=== PATIENT | female | born 1940 | race Caucasian/White ===

== ENCOUNTER 2020-04-23 14:28 | Emergency (ER) | payer MEDICARE, BC ==
[2020-04-23 14:36] VITALS: BP 163/90; PULSE 108
[2020-04-23] MEDS ORDERED: Sodium Chloride 0.9% 1,000 ML IV ONE (14:52)
[2020-04-23] MEDS ORDERED: Ondansetron 4 MG/2 ML SDV IVPUSH ONE (14:52)
--- NOTE | 2020-04-23 14:59 | EDM.PDOC ---
<Gail Blackman - Last Filed: 04/23/20 15:05> ED HPI GENERAL MEDICAL PROBLEM - General Chief Complaint: Abdominal Pain Stated Complaint: STOMACH PAINS Time Seen by Provider: 04/23/20 14:45 Source of Information: Reports: Patient, RN, RN Notes Reviewed History Limitations: Reports: No Limitations - History of Present Illness INITIAL COMMENTS - FREE TEXT/NARRATIVE: 80 year old female with known history of abdominal hernias. pt states she has had these "hernias outside of her stomach for over 15 years." reports hx of gastric bypass "20 some years ago." states on she was making donuts and ate a couple of them and felt "plugged up" soon after. states she has had nausea/dry heaves since , has not been able to have a BM or pass flatulence since . states she has not eaten anything solid since , has tried drinking some coke hoping that would "push things through". states she has had a sip of water earlier today. denies fever/chills. reports SOB with abdominal distention. rates pain 11/10. reports PMH of diabetes for which she takes metformin. Onset Date: 04/21/20 Location: Reports: Abdomen Severity: Moderate Bilateral Lower Abdominal Pain Score (Numeric/FACES): 7 - Related Data Allergies Allergy/AdvReac Type Severity Reaction Status Date / Time adhesive Allergy Blisters Verified 11/28/15 06:48 .ENVIRONMENTAL Allergy Cough Uncoded 11/28/15 06:48 Home Meds: Home Meds Cholecalciferol (Vitamin D3) [Vitamin D3] 1,000 unit PO DAILY 11/24/15 [History] Cyanocobalamin (Vitamin B-12) [Vitamin B-12] 500 mcg PO DAILY 11/24/15 [History] Naproxen [IJD: Naproxen] 500 mg PO BID PRN 11/24/15 [History] Lutein/Minerals/Vit A,C & E [Ocuvite] 1 tab PO DAILY 11/28/15 [History] Past Medical History HEENT History: Reports: Cataract Cardiovascular History: Reports: High Cholesterol, Hypertension Respiratory History: Reports: Sleep Apnea Gastrointestinal History: Reports: Chronic Diarrhea, Colon Polyp, Hepatitis Genitourinary History: Reports: None 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: Musculoskeletal History: Reports: Osteoarthritis, Other (See Below) Other Musculoskeletal History: DJD Neurological History: Reports: Migraines Psychiatric History: Reports: None Endocrine/Metabolic History: Reports: Obesity/BMI 30+, Osteopenia, Other (See Below) Other Endocrine/Metabolic History: pre diabetes Hematologic History: Reports: Anemia, B12 Deficiency Immunologic History: Reports: None Oncologic (Cancer) History: Reports: Basal Cell Carcinoma Dermatologic History: Reports: None - Infectious Disease History Infectious Disease History: Other Infectious Disease History: Uncertain of health hx - Past Surgical History HEENT Surgical History: Reports: None Cardiovascular Surgical History: Reports: None GI Surgical History: Reports: Bariatric Procedure, Cholecystectomy, Colonoscopy, Hernia Repair/Other, Polypectomy Female Surgical History: Reports: Tubal Ligation Musculoskeletal Surgical History: Reports: Other (See Below) Other Musculoskeletal Surgeries/Procedures:: HAMMERTOE CORRECTION Social & Family History - Tobacco Use Tobacco Use Status *Q: Never Tobacco User Second Hand Smoke Exposure: No - Recreational Drug Use Recreational Drug Use: No ED ROS GENERAL - Review of Systems Review Of Systems: Comprehensive ROS is negative, except as noted in HPI. ED EXAM, GI/ABD - Physical Exam Exam: See Below Exam Limited By: No Limitations General Appearance: Alert, WD/WN, No Apparent Distress Eyes: Bilateral: EOMI Ears: Normal External Exam, Hearing Grossly Normal Nose: Normal Inspection Throat/Mouth: Normal Inspection, No Airway Compromise Head: Atraumatic, Normocephalic Neck: Normal Inspection, Supple, Non-Tender, Full Range of Motion Respiratory/Chest: No Respiratory Distress, Lungs Clear, Normal Breath Sounds Cardiovascular: Normal Peripheral Pulses, Regular Rate, Rhythm, No Edema GI/Abdominal Exam: Distended, Tender, Abnormal Bowel Sounds (BS absent x 4 quadrants), Hernia (large palpable hernia across waistline/umbilicus, right and left quadrants, firm, tender), Other (varicosities noted across hernia area). No: Normal Bowel Sounds, Soft, Non-Tender, No Distention, No Mass (Female) Exam: Deferred Rectal (Female) Exam: Deferred. No: Heme - Stool Back Exam: Normal Inspection, Full Range of Motion Extremities: Normal Inspection, Normal Range of Motion Neurological: Alert, Oriented, CN II-XII Intact, Normal Cognition, Normal Gait, Normal Reflexes, No Motor/Sensory Deficits Psychiatric: Normal Affect, Normal Mood Skin Exam: Warm, Dry, Intact Lymphatic: No Adenopathy Departure - Departure Disposition: DC/Tfer to [facility] 02 Clinical Impression: Gastroduodenitis, Ileus, History of gastric bypass Abdominal pain Qualifiers: Abdominal location: generalized Qualified Code(s): R10.84 - Generalized abdominal pain Ventral hernia Qualifiers: Obstruction and gangrene presence: with obstruction but without gangrene Qualified Code(s): K43.6 - Other and unspecified ventral hernia with obs truction, without gangrene UTI (urinary tract infection) Qualifiers: Urinary tract infection type: acute cystitis Hematuria presence: without hematuria Qualified Code(s): N30.00 - Acute cystitis without hematuria Diabetes Qualifiers: Diabetes mellitus type: type 2 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 use: without half-way use Diabetes mellitus complication status: without complication Qualified Code(s): E11.9 - Type 2 diabetes mellitus without complications - Discharge Information Forms: ED Department Discharge, Interfacility Transfer [facility] Sepsis Event Note (ED) - Evaluation Sepsis Screening Result: No Definite Risk <Mary Ann Espinoza - Last Filed: 04/23/20 18:06> Course - Vital Signs Last Recorded V/S: Last Vital Signs Temp 97.6 F 04/23/20 14:31 Pulse 108 H 04/23/20 14:31 Resp 18 04/23/20 14:31 BP 163/90 H 04/23/20 14:31 Pulse Ox 97 04/23/20 14:31 - Orders/Labs/Meds Orders: Active Orders 24 hr Category Date Time Status CULTURE BLOOD [BC] Stat Lab 04/23/20 14:42 Received CULTURE BLOOD [BC] Stat Lab 04/23/20 15:13 Received CULTURE URINE [RM] Routine Lab 04/23/20 16:55 Received Sodium Chloride 0.9% [Normal Saline] 1,000 ml Med 04/23/20 16:45 Active IV ASDIRECTED Blood Culture x2 Reflex Set [OM.PC] Stat Oth 04/23/20 14:51 Ordered Medication Orders Sodium Chloride (Normal Saline) 1,000 mls @ 150 mls/hr IV ASDIRECTED DANIEL Last Admin: 04/23/20 17:00 Dose: 150 mls/hr Documented by: LIZZIE Labs: Laboratory Tests 04/23/20 04/23/20 04/23/20 Range/Units 14:42 14:42 14:42 WBC 14.1 H (5.0-10.0) 10^3/uL RBC 5.28 (4.2-5.4) 10^6/uL Hgb 15.9 (12.0-16.0) g/dL Hct 45.9 (37.0-47.0) % MCV 86.9 (80-100) fL MCH 30.1 (27.0-34.0) pg MCHC 34.6 (33.0-35.0) g/dL Plt Count 243 (150-450) 10^3/uL Neut % (Auto) 83.9 H (42.2-75.2) % Lymph % (Auto) 8.9 L (20.5-50.1) % Towner % (Auto) 6.7 (2-8) % Eos % (Auto) 0.2 L (1.0-3.0) % Baso % (Auto) 0.3 (0.0-1.0) % Sodium 135 L (136-145) mmol/L Potassium 3.8 (3.5-5.1) mmol/L Chloride 96 L (98-107) mmol/L Carbon Dioxide 22 (21-32) mmol/L Anion Gap 20.8 H (7-13) mEq/L BUN 22 H (7-18) mg/dL Creatinine 1.05 H (0.55-1.02) mg/dL Est Cr Clr Drug Dosing 38.13 mL/min Estimated GFR (MDRD) 51 BUN/Creatinine Ratio 21.0 (No establ ref range) Glucose 177 H (74-99) mg/dL Lactic Acid 3.1 H* (0.4-2.0) mmol/L Calcium 9.1 (8.5-10.1) mg/dL Total Bilirubin 1.8 H (0.2-1.0) mg/dL AST 38 H (15-37) U/L ALT 62 H (14-59) U/L Alkaline Phosphatase 58 (46-116) U/L Total Protein 7.1 (6.4-8.2) g/dL Albumin 3.9 (3.4-5.0) g/dL Globulin 3.2 Albumin/Globulin Ratio 1.2 Urine Color (YELLOW) Urine Appearance (CLEAR) Urine pH (5.0-9.0) Ur Specific [place] (1.005-1.030) Urine Protein (NEGATIVE) Urine Glucose (UA) (NEGATIVE) Urine Ketones (NEGATIVE) Urine Occult Blood (NEGATIVE) Urine Nitrite (NEGATIVE) Urine Bilirubin (NEGATIVE) Urine Urobilinogen (0.2-1.0) mg/dL Ur Leukocyte Esterase (NEGATIVE) Urine RBC /HPF Urine WBC (0-5/HPF) /HPF Ur Epithelial Cells (NOT SEEN) /HPF Amorphous Sediment (NOT SEEN) /HPF Urine Bacteria (0-FEW/HPF) /HPF Urine Mucus (NOT SEEN) /LPF SARS CoV-2 RNA Rapid JIMI (NEGATIVE) 04/23/20 04/23/20 Range/Units 16:55 17:18 WBC (5.0-10.0) 10^3/uL RBC (4.2-5.4) 10^6/uL Hgb (12.0-16.0) g/dL Hct (37.0-47.0) % MCV (80-100) fL MCH (27.0-34.0) pg MCHC (33.0-35.0) g/dL Plt Count (150-450) 10^3/uL Neut % (Auto) (42.2-75.2) % Lymph % (Auto) (20.5-50.1) % Towner % (Auto) (2-8) % Eos % (Auto) (1.0-3.0) % Baso % (Auto) (0.0-1.0) % Sodium (136-145) mmol/L Potassium (3.5-5.1) mmol/L Chloride (98-107) mmol/L Carbon Dioxide (21-32) mmol/L Anion Gap (7-13) mEq/L BUN (7-18) mg/dL Creatinine (0.55-1.02) mg/dL Est Cr Clr Drug Dosing mL/min Estimated GFR (MDRD) BUN/Creatinine Ratio (No establ ref range) Glucose (74-99) mg/dL Lactic Acid (0.4-2.0) mmol/L Calcium (8.5-10.1) mg/dL Total Bilirubin (0.2-1.0) mg/dL AST (15-37) U/L ALT (14-59) U/L Alkaline Phosphatase (46-116) U/L Total Protein (6.4-8.2) g/dL Albumin (3.4-5.0) g/dL Globulin Albumin/Globulin Ratio Urine Color Yellow (YELLOW) Urine Appearance Cloudy (CLEAR) Urine pH 5.5 (5.0-9.0) Ur Specific [place] 1.020 (1.005-1.030) Urine Protein Negative (NEGATIVE) Urine Glucose (UA) Negative (NEGATIVE) Urine Ketones Negative (NEGATIVE) Urine Occult Blood Negative (NEGATIVE) Urine Nitrite Positive H (NEGATIVE) Urine Bilirubin Negative (NEGATIVE) Urine Urobilinogen 2.0 H (0.2-1.0) mg/dL Ur Leukocyte Esterase Negative (NEGATIVE) Urine RBC 0-5 /HPF Urine WBC 5-10 H (0-5/HPF) /HPF Ur Epithelial Cells Rare (NOT SEEN) /HPF Amorphous Sediment Rare (NOT SEEN) /HPF Urine Bacteria Many H (0-FEW/HPF) /HPF Urine Mucus Not seen (NOT SEEN) /LPF SARS CoV-2 RNA Rapid JIMI Negative (NEGATIVE) Meds: Medications Generic Name Dose Route Start Last Admin Trade Name Rosanne PRN Reason Stop Dose Admin Sodium Chloride 1,000 mls @ 150 mls/hr 04/23/20 16:45 04/23/20 17:00 Normal Saline IV 150 mls/hr ASDIRECTED DANIEL Administration Discontinued Medications Generic Name Dose Route Start Last Admin Trade Name Rosanne PRN Reason Stop Dose Admin Fentanyl 50 mcg 04/23/20 16:36 04/23/20 17:00 Sublimaze IVPUSH 04/23/20 16:37 50 mcg ONETIME ONE Administration Sodium Chloride 1,000 mls @ 999 mls/hr 04/23/20 14:52 04/23/20 14:59 Normal Saline IV 04/23/20 15:52 999 mls/hr .BOLUS ONE Administration Piperacillin Sod/Tazobactam 50 mls @ 100 mls/hr 04/23/20 16:40 04/23/20 17:17 Sod 2.25 gm/ Sodium Chloride IV 04/23/20 17:09 100 mls/hr ONETIME ONE Administration Sodium Chloride Confirm 04/23/20 17:06 04/23/20 17:15 Normal Saline Administered 04/23/20 17:07 Not Given Dose 50 mls @ as directed .ROUTE .STK-MED ONE Sodium Chloride Confirm 04/23/20 17:09 04/23/20 17:18 Normal Saline Administered 04/23/20 17:10 Not Given Dose 50 mls @ as directed .ROUTE .STK-MED ONE Iopamidol 100 ml 04/23/20 15:20 04/23/20 15:32 Isovue-300 (61%) IVPUSH 04/23/20 15:21 100 ml ONETIME ONE Administration Ondansetron HCl 4 mg 04/23/20 14:52 04/23/20 14:59 Zofran IVPUSH 04/23/20 14:53 4 mg ONETIME ONE Administration - Radiology Interpretation Free Text/Narrative:: CT Abdomen/Pelvis with contrast: PROCEDURE INFORMATION: Exam: CT Abdomen And Pelvis With Contrast Exam date and time: 04/23/2020 4:04 PM Age: 80 years old Clinical indication: Other: Wbc 14,100; Prior surgery; Additional info: Abdominal pain/hernia TECHNIQUE: Imaging protocol: Computed tomography of the abdomen and pelvis with intravenous contrast. Radiation optimization: All CT scans at this facility use at least one of these dose optimization techniques: automated exposure control; mA and/or kV adjustment per patient size (includes targeted exams where dose is matched to clinical indication); or iterative reconstruction. Contrast material: [id number]; Contrast volume: 100 ml; Contrast route: INTRAVENOUS (IV); COMPARISON: No relevant prior studies available. FINDINGS: Lungs: Atelectatic changes noted within the lung bases. Liver: There is a diffuse decrease in hepatic parenchymal density, consistent with mild fatty infiltration. Mild hepatomegaly. Gallbladder and bile ducts: Gallbladder is not well seen. Pancreas: Normal. No ductal dilation. Spleen: Normal. No splenomegaly. Adrenal glands: Normal. No mass. Kidneys and ureters: Normal. No hydronephrosis. Stomach and bowel: Thickening of the francis of the stomach and duodenum present consistent with gastroduodenitis. Moderate distention of the small bowel is present with air- fluid levels consistent with moderate ileus. Appendix: No evidence of appendicitis. Intraperitoneal space: Normal. No significant fluid collection. Vasculature: Unremarkable. No abdominal aortic aneurysm. Lymph nodes: Unremarkable. No enlarged lymph nodes. Urinary bladder: Unremarkable as visualized. Reproductive: Right adnexal cystic lesion is present measuring up to 3.8 cm. Bones/joints: Bilateral total hip replacements are present. The lumbar spine demonstrates moderate degenerative changes at multiple levels. Soft tissues: Large ventral wall hernia with bowel and fat present. Other findings: Postoperative changes noted within the epigastric region. IMPRESSION: 1. Moderate distention of the small bowel is present with air-fluid levels consistent with moderate ileus. 2. Large ventral wall hernia with bowel and fat present. 3. Mild hepatomegaly. 4. Thickening of the francis of the stomach and duodenum present consistent with gastroduodenitis. 5. Right adnexal cystic lesion is present measuring up to 3.8 cm. Thank you for allowing us to participate in the care of your patient. Dictated and Authenticated by: Dixon Bennett DO 04/23/2020 4:32 PM Central Time ([place] & [place]) See rad report - Re-Assessments/Exams Free Text/Narrative Re-Assessment/Exam: 04/23/20 17:03 I personally performed or re-performed the physical examination and medical decision making. I have verified all student documentation or findings, including history, physical exam and/or medical decision making. 04/23/20 17:58 1637 - Discussed patient case with Dr. Conner who states he would like the patient transferred to [facility] in [place]. 1640 - Discussed patient case with Dr. Ellsworth who states he is willing to admit the patient as long as Surgery is on board. 1650 - Discussed patient case with Dr. Baeza who states it is necessary that the patient be transferred to [facility] for bariatric surgeon. 1711 - Pt case discussed with Dr. Sherman, Bariatric surgeon at who states he would also like general surgery to be on board. 1749 - Dr. Diallo, surgery resident, who was with Dr. Mcclure, surgeon, agree to accept the patient for transfer to [facility]. Both Dr. Diallo and Dr. Sherman were concerned about the amount of time it would take for the patient to get to [place] by ground, would prefer she be transferred by air if possible. Departure - Departure Time of Disposition: 18:03 Condition: Fair, Serious - Discharge Information *PRESCRIPTION DRUG MONITORING PROGRAM REVIEWED*: No *COPY OF PRESCRIPTION DRUG MONITORING REPORT IN PATIENT SARAH: No Sepsis Event Note (ED) - Focused Exam Vital Signs: Vital Signs Temp Pulse Resp BP Pulse Ox 04/23/20 14:31 97.6 F 108 H 18 163/90 H 97
[2020-04-23 15:13] LABS: ANION GAP 20.8 mEq/L (7-13)
[2020-04-23] MEDS ORDERED: Iopamidol 612 MG/ML 100 ML Bottle IVPUSH ONE (15:20)
--- NOTE | 2020-04-23 16:32 | CT ---
PROCEDURE INFORMATION: Exam: CT Abdomen And Pelvis With Contrast Exam date and time: 04/23/2020 4:04 PM Age: 80 years old Clinical indication: Other: Wbc 14,100; Prior surgery; Additional info: Abdominal pain/hernia TECHNIQUE: Imaging protocol: Computed tomography of the abdomen and pelvis with intravenous contrast. Radiation optimization: All CT scans at this facility use at least one of these dose optimization techniques: automated exposure control; mA and/or kV adjustment per patient size (includes targeted exams where dose is matched to clinical indication); or iterative reconstruction. Contrast material: [id number]; Contrast volume: 100 ml; Contrast route: INTRAVENOUS (IV); COMPARISON: No relevant prior studies available. FINDINGS: Lungs: Atelectatic changes noted within the lung bases. Liver: There is a diffuse decrease in hepatic parenchymal density, consistent with mild fatty infiltration. Mild hepatomegaly. Gallbladder and bile ducts: Gallbladder is not well seen. Pancreas: Normal. No ductal dilation. Spleen: Normal. No splenomegaly. Adrenal glands: Normal. No mass. Kidneys and ureters: Normal. No hydronephrosis. Stomach and bowel: Thickening of the francis of the stomach and duodenum present consistent with gastroduodenitis. Moderate distention of the small bowel is present with air-fluid levels consistent with moderate ileus. Appendix: No evidence of appendicitis. Intraperitoneal space: Normal. No significant fluid collection. Vasculature: Unremarkable. No abdominal aortic aneurysm. Lymph nodes: Unremarkable. No enlarged lymph nodes. Urinary bladder: Unremarkable as visualized. Reproductive: Right adnexal cystic lesion is present measuring up to 3.8 cm. Bones/joints: Bilateral total hip replacements are present. The lumbar spine demonstrates moderate degenerative changes at multiple levels. Soft tissues: Large ventral wall hernia with bowel and fat present. Other findings: Postoperative changes noted within the epigastric region. IMPRESSION: 1. Moderate distention of the small bowel is present with air-fluid levels consistent with moderate ileus. 2. Large ventral wall hernia with bowel and fat present. 3. Mild hepatomegaly. 4. Thickening of the francis of the stomach and duodenum present consistent with gastroduodenitis. 5. Right adnexal cystic lesion is present measuring up to 3.8 cm.
[2020-04-23] MEDS ORDERED: fentaNYL 100 MCG/2 ML SDV IVPUSH ONE (16:36)
[2020-04-23] MEDS ORDERED: Piperacillin/Tazobactam 2.25 GM in Sodium Chloride 0.9% 50 ML IV ONE (16:40)
[2020-04-23] MEDS ORDERED: Sodium Chloride 0.9% 1,000 ML IV SCH (16:45)
[2020-04-23] MEDS ORDERED: Sodium Chloride 0.9% 0 ML ONE (17:06)
[2020-04-23] MEDS ORDERED: Sodium Chloride 0.9% 50 ML ONE (17:09)
== END 2020-04-23 18:31 ==
LOC: DL.ED 14:28
DX: K29.90 Gastroduodenitis, unspecified, without bleeding (principal); K56.7 Ileus, unspecified; K43.6 Other and unspecified ventral hernia with obstruction, without gangrene; N30.00 Acute cystitis without hematuria; E11.9 Type 2 diabetes mellitus without complications; E66.9 Obesity, unspecified; I10 Essential (primary) hypertension; Z68.37 Body mass index [BMI] 37.0-37.9, adult; Z98.84 Bariatric surgery status; Z91.048 Other nonmedicinal substance allergy status; Z20.828 Contact with and (suspected) exposure to other viral communicable diseases
CPT/HCPCS: 36415; 74177; 80053; 81001; 83605; 85025; 87040; 87086; 87088; 87186; 96365; 96375; 99285; J2405; J2543; J3010; J7030; Q9967; U0002